=== PATIENT | male | born 2000 | race Caucasian/White ===

== ENCOUNTER 2022-11-18 14:14 | Emergency (ER) | payer MEDICAID ==
[~2022-11-18] VITALS: Ht 188 cm; Wt 180.0 kg
[2022-11-18 14:44] VITALS: BP 116/50
[2022-11-18] MEDS ORDERED: LORazepam 1 MG tablet PO ONE (15:50)
== END 2022-11-18 16:50 | disposition home or self-care (01) ==
LOC: ER 14:14
DX: F41.9 Anxiety disorder, unspecified (principal); E86.0 Dehydration
CPT/HCPCS: 99283

== ENCOUNTER 2023-11-30 22:49 | Emergency (ER) | payer MEDICAID ==
[~2023-11-30] VITALS: Ht 188 cm; Wt 88.0 kg
[2023-11-30 22:52] VITALS: BP 131/73; PULSE 104; TEMP 98.4; O2SAT 97
[2023-11-30] MEDS ORDERED: IBUP-1984 PO (23:23)
[2023-11-30 23:28] VITALS: RESP 18
[2023-11-30] MEDS: ketorolac tromethamine 15mg/ml inj. IM ONE (23:28)
== END 2023-11-30 23:36 | disposition home or self-care (01) ==
LOC: ER 22:50
DX: S93.401A Sprain of unspecified ligament of right ankle, initial encounter (principal); F10.90 Alcohol use, unspecified, uncomplicated; W18.30XA Fall on same level, unspecified, initial encounter; Y93.89 Activity, other specified; Y92.89 Other specified places as the place of occurrence of the external cause; Y99.8 Other external cause status
CPT/HCPCS: 73610; 96372; 99284; J1885; 99283

== ENCOUNTER 2025-03-27 19:23 | Emergency (ER) | payer MEDICAID ==
[~2025-03-27] VITALS: Ht 188 cm; Wt 81.8 kg
[2025-03-27 19:28] VITALS: BP 111/63; PULSE 88; TEMP 98.2; O2SAT 96
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
[2025-03-27 19:53] VITALS: RESP 16
== END 2025-03-27 19:54 ==
LOC: ER 19:23
DX: S80.02XA Contusion of left knee, initial encounter (principal); S80.01XA Contusion of right knee, initial encounter; V49.40XA Driver injured in collision with unspecified motor vehicles in traffic accident, initial encounter; Y93.89 Activity, other specified; Y92.410 Unspecified street and highway as the place of occurrence of the external cause; Y99.8 Other external cause status
CPT/HCPCS: 99283

== ENCOUNTER 2025-04-08 11:03 | Emergency (ER) | payer MEDICAID ==
[~2025-04-08] VITALS: Ht 188 cm; Wt 82.0 kg
[2025-04-08 11:08] VITALS: BP 150/76; PULSE 100; RESP 20; TEMP 97.2; O2SAT 99
== END 2025-04-08 17:16 | disposition left against medical advice (07) ==
LOC: ER 11:03
DX: R11.10 Vomiting, unspecified (principal)
CPT/HCPCS: 99281